=== PATIENT | male | born 1990 | race Native Hawaiian/Other Pacific Islander ===

== ENCOUNTER 2020-07-05 14:44 | Emergency (ER) | payer OTHER ==
[2020-07-05 15:01] VITALS: BP 150/76; PULSE 75; RESP 18; TEMP 98
--- NOTE | 2020-07-05 15:38 | ED ---
General Adult HPI - General Chief complaint: Recheck/Abnormal Lab/Rx Stated complaint: HIV testing Time Seen by Provider: 07/05/20 15:02 Source: patient, RN notes reviewed, old records reviewed Mode of arrival: ambulatory Limitations: no limitations - History of Present Illness Initial comments: 30-year-old male patient with no pertinent past medical history presents to ED requesting HIV testing. Patient reports that he has a new girlfriend who is requesting him be tested for STDs. Reports that he went to another [facility] with a tested him for gonorrhea and Chlamydia but he is also requesting HIV testing. He is denying any known exposures or any other complaints. Systemic: Pt denies fatigue, fever/chills, rash. Pt denies weakness, night sweats, weight loss. Neuro: Pt denies headache, visual disturbances, syncope or pre-syncope. HEENT: Pt denies ocular discharge or irritation, otalgia, rhinorrhea, pharyngitis or notable lymphadenopathy. Cardiopulmonary: Pt denies chest pain, SOB, heart palpitations, dyspnea on exertion. Abdominal/GI: Pt denies abdominal pain, n/v/d. : Pt denies dysuria, burning w/ urination, frequency/urgency. Denies new onset urinary or bowel incontinence. MSK: Pt denies myalgia, loss of strength or function in extremities. Neuro: Pt denies new onset weakness, paresthesias. - Related Data Allergies Allergy/AdvReac Type Severity Reaction Status Date / Time No Known Allergies Allergy Verified 07/05/20 15:01 Review of Systems ROS Statement: Those systems with pertinent positive or pertinent negative responses have been documented in the HPI. ROS Other: All systems not noted in ROS Statement are negative. Past Medical History Past Medical History: No Reported History History of Any Multi-Drug Resistant Organisms: MRSA Date of last positivie culture/infection: 2018 MDRO Source:: chest Past Surgical History: No Surgical Hx Reported Past Psychological History: Depression Smoking Status: Never smoker Past Alcohol Use History: Occasional Past Drug Use History: None Reported General Exam - General Exam Comments Initial Comments: Constitutional: NAD, AOX3, Pt has pleasant affect. HEENT: NC/AT, trachea midline, neck supple, no lymphadenopathy. External ears appear normal, without discharge. Mucous membranes moist. EOM intact. There is no scleral icterus. No pallor noted. Cardiopulmonary: RRR, no murmurs, rubs or gallops, no JVD noted. Lungs CTAB in anterior and posterior fontana. No peripheral edema. Abdominal exam: Abdomen soft and non-distended. Abdomen non-tender to palpation in all 4 quadrants. Neuro: CN II-XII grossly intact. No nuchal rigidity. MSK: Full active ROM in upper and lower extremities. Limitations: no limitations Course Vital Signs 07/05/20 14:58 Temperature 98 F Pulse Rate 75 Respiratory 18 Rate Blood Pressure 150/76 O2 Sat by Pulse 96 Oximetry Medical Decision Making - Medical Decision Making 30-year-old male patient this ED for evaluation requesting HIV testing. Denies any physical complaints or known exposure. Reports that he does have a primary care provider has been assigned to him however they're out of town. Patient was tested. Rapid was negative patient was called with results. Will follow up with primary care provider and will return to ER if condition worsens. Case discussed with Dr. Luna. - Lab Data Lab Results 07/05/20 Range/Units 15:46 HIV 1&2 Antibody Rapid Nonreactive (Nonreactive) Disposition Clinical Impression: Encounter for HIV (human immunodeficiency virus) test Disposition: HOME SELF-CARE Condition: Stable Instructions (If sedation given, give patient instructions): Safe Sex (ED) Additional Instructions: Follow-up with primary care provider tomorrow. Return to ER if any worsening symptoms. Is patient prescribed a controlled substance at d/c from ED?: No Referrals: None,Stated [Primary Care Provider] - 1-2 days
[2020-07-06 06:09] LABS: HIV 2 AB Non-Reactive (Non-Reactive); HIV AB P24 Non-Reactive (Non-Reactive); HIV P24 AG Non-Reactive (Non-Reactive)
== END 2020-07-05 16:10 | disposition home or self-care (01) ==
LOC: EC 14:44
DX: Z11.4 Encounter for screening for human immunodeficiency virus [HIV] (principal)
CPT/HCPCS: 36415; 86701; 87390; 99283

== ENCOUNTER → 2023-10-30 | Outpatient (CLI) | payer OTHER ==
[2023-10-31 02:40] LABS: HCT 45.2 % (39.6-50.0); HGB 15.2 g/dL (13.0-17.0); MCH 29.9 pg (27.0-32.0); MCHC 33.6 g/dL (32.0-37.0); MCV 88.8 FL (80.0-97.0); Mean Platelet Volume 10.9 FL (9.5-12.2); NRBC Per 100 WBC 0 X 10*3/uL (0.00-0.01); Platelet Count 263 X 10*3/uL (140-440); RBC 5.09 X 10*6/uL (4.40-5.60); RDW 13.1 % (11.5-14.5); WBC 4.96 X 10*3/uL (4.50-10.00)
[2023-10-31 02:57] LABS: ALT 25 U/L (10-49); AST 21 U/L (14-35); Albumin/Globulin Ratio 1.72 Ratio (1.60-3.17); Alkaline Phosphatase 77 U/L (41-126); BUN/Creat Ratio 14.82 Ratio (12.00-20.00); Blood Urea Nitrogen 16.3 mg/dL (9.0-27.0); Calcium 10.3 mg/dL (8.7-10.3); Carbon Dioxide 23.8 mmol/L (21.6-31.8); Chloride 104 mmol/L (96-109); Globulin 2.9 g/dL (1.6-3.3); Glucose 83 mg/dL (70-110); Potassium 4.1 mmol/L (3.5-5.5); Sodium 142 mmol/L (135-145); Total Bilirubin 0.6 mg/dL (0.3-1.2); Total Protein 7.9 g/dL (6.2-8.2)
== END | disposition home or self-care (01) ==
LOC: LABWHC1 14:49
PROVIDERS: ATTEND Dermatology MOHS-Micrographic Surgery
DX: I10 Essential (primary) hypertension (principal); L40.0 Psoriasis vulgaris; K21.9 Gastro-esophageal reflux disease without esophagitis
CPT/HCPCS: 36415; 80053; 83013; 85027

== ENCOUNTER → 2023-12-31 | Outpatient (CLI) | payer OTHER ==
[2023-12-31 18:48] LABS: Blood Urea Nitrogen 15.3 mg/dL (9.0-27.0); Chol/HDL Ratio 5.32 Ratio; LDL Cholesterol,Calculated 159.3 mg/dL (0.0-131.0); Magnesium 2.1 mg/dL (1.5-2.4)
[2023-12-31 20:33] LABS: Appearance,Urine Clear (Clear); Bilirubin,Urine Negative (Negative); Blood,Urine Negative (Negative); Color,Urine Dark Yellow (Yellow); Ketones,Urine Trace (Negative); Nitrite,Urine Negative (Negative); PH, Urine 5.5; Specific Gravity,Urine 1.033 (1.001-1.030); Urobilinogen,Urine 0.2
== END | disposition home or self-care (01) ==
LOC: LABWHC1 14:22
PROVIDERS: ATTEND Family Medicine
DX: Z00.00 Encounter for general adult medical examination without abnormal findings (principal); I10 Essential (primary) hypertension
CPT/HCPCS: 36415; 80061; 81003; 82043; 82533; 82570; 83735; 84443; 84520

== ENCOUNTER 2024-02-09 10:51 | Day surgery (SDC) | payer OTHER ==
[2024-02-05 13:10] VITALS: BMI 27.0
[~2024-02-09 10:51] MED LIST: LACTATED RINGERS 1,000 ML IV SCH
[2024-02-09] MEDS: LACTATED RINGERS 1,000 ML IV ONE (11:40)
[2024-02-09] MEDS ORDERED: LIDOCAINE 2% (PF) 20 MG/ML 5 ML VIAL ONE (12:20)
[2024-02-09] MEDS ORDERED: PROPOFOL 10 MG/ML 20 ML VIAL IV ONE (12:20)
[2024-02-09] MEDS ORDERED: fentaNYL (PF) 50 MCG/ML 2 ML AMP ONE (12:20)
--- NOTE | 2024-02-09 12:28 | P.PCN ---
Date of Procedure: 02/09/24 Procedure(s) Performed: BRIEF HISTORY: Patient is a 34-year-old, pleasant, white male scheduled for an upper endoscopy as a part of evaluation of GERD and presently on omeprazole 40 mg daily. He denies any dysphagia or odynophagia. He scheduled for an upper endoscopy to rule out complicated reflux disease PROCEDURE PERFORMED: Esophagogastroduodenoscopy with biopsy . PREOPERATIVE DIAGNOSIS: Long-standing history of GERD. IV sedation per anesthesia. PROCEDURE: After informed consent was obtained, the patient was brought into the endoscopy unit. IV sedation was administered by Anesthesia under continuous monitoring. Initially the Olympus GIF-140 video endoscope was inserted into the mouth. Esophagus intubated without any difficulty. It was gradually advanced into the stomach and duodenum and carefully examined. The bulb and the second part of the duodenum appeared normal. The scope at this time was withdrawn to the stomach, adequately insufflated with air, and upon careful examination, mucosa of the antrum, body, cardia and the fundus appeared normal. The scope was then withdrawn into the esophagus. The GE junction was located at 44 cm from the incisors. there were 2 tongues of Cannon's appearing mucosa just proximal to the GE junction measuring 2 or 3 mm in size which were biopsied. In the midesophagus at 30 cm from the incisors there were isolated erosions with exudates identified suspicious for pill induced esophagitis. Rest of esophagus appeared normal and the patient tolerated the procedure well. IMPRESSION: 1.. 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 Mild esophagitis in the midesophagus isolated erosion and exudates. RECOMMENDATIONS: The findings of this examination were discussed with the patient as well as his family. He was advised to continue with omeprazole 20 mg daily and follow antireflux measures. continue with omeprazole 40 mg daily and follow antireflux measures. If the biopsy confirms the presence of Cannon's esophagus he can have a repeat upper endoscopy every 3 years
[2024-02-09 12:31] VITALS: TEMP 97.9
[2024-02-09 13:07] VITALS: BP 131/86; PULSE 83; RESP 14
--- NOTE | 2024-02-09 13:45 | XR ---
EXAM TYPE: LUMBAR SPINE X RAY SERIES COMPARISON: NONE HISTORY: Lower back pain TECHNIQUE: 4 views are submitted. FINDINGS: Alignment is anatomic. The pedicles are intact. The transverse processes are intact. There is no s pondylolisthesis. Partial sacralization of the L5 segment. Facet arthropathy L5-S1. IMPRESSION: 1. Facet arthropathy L5-S1 correlate with MRI as clinically warranted.
== END 2024-02-09 13:14 | disposition home or self-care (01) ==
LOC: ORWHC2ENDO 10:51
PROVIDERS: ATTEND Internal Medicine Gastroenterology
DX: K21.00 Gastro-esophageal reflux disease with esophagitis, without bleeding (principal); K22.70 Barrett's esophagus without dysplasia; I10 Essential (primary) hypertension; J45.909 Unspecified asthma, uncomplicated; F32.A Depression, unspecified; M47.817 Spondylosis without myelopathy or radiculopathy, lumbosacral region; Z91.011 Allergy to milk products; Z79.899 Other long term (current) drug therapy
CPT/HCPCS: 88305; 72110; 43239; J3010; J2704; J2001